=== PATIENT | female | born 1965 | race Caucasian/White ===

== ENCOUNTER 2017-03-23 08:08 | Day surgery (SDC) | payer OTHER, MEDICAID ==
[2017-03-23] MEDS ORDERED: MEPERIDINE HCL/PF 100 MG/ML AMP ONE (08:58)
[2017-03-23] MEDS ORDERED: SIMETHICONE 40 MG/0.6 ML ML ONE (08:59)
[2017-03-23] MEDS: MIDAZOLAM HCL 5 MG/5 ML VIAL ONE ×8 (10:35→10:55)
[2017-03-23] MEDS: MEPERIDINE HCL/PF 100 MG/ML AMP ONE ×3 (10:35→10:39)
== END 2017-03-23 16:21 | disposition home or self-care (01) ==
LOC: SDS 08:08 → MERGE 08:08 → SMU 08:27 → SDS 16:21
PROVIDERS: ATTEND Internal Medicine Gastroenterology
DX: K57.30 Diverticulosis of large intestine without perforation or abscess without bleeding (principal); K64.8 Other hemorrhoids; Z53.8 Procedure and treatment not carried out for other reasons; J45.909 Unspecified asthma, uncomplicated; E07.9 Disorder of thyroid, unspecified; B15.9 Hepatitis A without hepatic coma; Z79.890 Hormone replacement therapy; Z79.1 Long term (current) use of non-steroidal anti-inflammatories (NSAID); Z79.899 Other long term (current) drug therapy; Z85.41 Personal history of malignant neoplasm of cervix uteri; Z90.49 Acquired absence of other specified parts of digestive tract; Z87.891 Personal history of nicotine dependence
CPT/HCPCS: 45378; J2175; J2250; 45380

== ENCOUNTER 2017-07-06 07:46 | Day surgery (SDC) | payer OTHER, MEDICAID ==
[~2017-07-06] VITALS: Ht 177.8 cm; Wt 142.4 kg
[2017-07-06] MEDS ORDERED: PROPOFOL 200MG/ 20ML VIAL (DIPRIVAN) IV ONE (11:30)
[2017-07-06] MEDS ORDERED: MIDAZOLAM HCL 5 MG/5 ML VIAL IVP ONE (11:30)
[2017-07-06] MEDS ORDERED: fentaNYL CITRATE/PF 100 MCG/2 ML AMP IVP ONE (11:30)
[2017-07-06] MEDS ORDERED: SIMETHICONE 40 MG/0.6 ML ML ONE (11:54)
[2017-07-06] MEDS ORDERED: LR 1,000 ML IV SCH (13:07)
[2017-07-06] MEDS ORDERED: MEPERIDINE HCL/PF 25 MG/ML DISP.SYRIN IVP PRN (13:15)
[2017-07-06 14:19] VITALS: BP_SYST 119
== END 2017-07-06 14:10 | disposition home or self-care (01) ==
LOC: SDS 07:46 → SMU 07:46 → SDS 14:10
PROVIDERS: ATTEND Internal Medicine Gastroenterology
DX: K63.89 Other specified diseases of intestine (principal); K57.30 Diverticulosis of large intestine without perforation or abscess without bleeding; K64.8 Other hemorrhoids; R10.9 Unspecified abdominal pain; E66.01 Morbid (severe) obesity due to excess calories; Z68.42 Body mass index [BMI] 45.0-49.9, adult
CPT/HCPCS: 45380; 88305; J2250; J2704; J3010; J7120

== ENCOUNTER 2019-12-08 09:52 | Emergency (ER) | payer OTHER, MEDICAID ==
[~2019-12-08] VITALS: Ht 172.7 cm; Wt 113.4 kg
[2019-12-08 09:57] VITALS: BP_SYST 149
[2019-12-08 10:20] VITALS: BP_SYST 149
== END 2019-12-08 10:20 | disposition home or self-care (01) ==
LOC: SED 09:52
DX: R06.4 Hyperventilation (principal); F41.9 Anxiety disorder, unspecified; Z88.5 Allergy status to narcotic agent
CPT/HCPCS: 99283